=== PATIENT | male | born 1960 | race Caucasian/White ===

== ENCOUNTER 2017-05-12 18:26 | Inpatient (IN) | payer OTHER ==
[~2017-05-12] VITALS: Ht 170.2 cm; Wt 102.2 kg
[2017-05-12] MEDS ORDERED: ONDANSETRON HCL 4 MG/2 ML VIAL IVP ONE (19:15)
[2017-05-12] MEDS ORDERED: SODIUM CHLORIDE 0.9% 1,000 ML IV ONE ×2 (19:15→20:30)
[2017-05-12] MEDS ORDERED: MORPHINE SULFATE 4 MG/ML SYRINGE IVP ONE (19:15)
[2017-05-12 19:20] LABS: BASOPHILS % (AUTO) 0.8 % (0.0-2.0); EOSINOPHILS % (AUTO) 3.9 % (1.0-6.0); HEMATOCRIT 41.5 % (41-53); HEMOGLOBIN 14.3 g/dL (13.5-17.5); LYMPHOCYTES # (AUTO) 2.5 K/uL (1.0-4.8); LYMPHOCYTES % (AUTO) 28.7 % (22.0-44.0); MEAN CORPUSCULAR HEMOGLOBIN 30.6 pg (26.0-34.0); MEAN CORPUSCULAR HGB CONC 34.5 G/dL (31.0-37.0); MEAN CORPUSCULAR VOLUME 89 fL (80-100); MONOCYTES # (AUTO) 0.4 K/uL (0.1-1.0); MONOCYTES % (AUTO) 4.5 % (2.0-9.0); NEUTROPHILS # (AUTO) 5.4 K/uL (1.8-7.7); NEUTROPHILS % (AUTO) 62.1 % (40.0-70.0); PLATELET COUNT (AUTO) 267 K/uL (150-450); RED BLOOD CELL COUNT(AUTO) 4.69 MIL/uL (4.50-5.90); RED CELL DISTRIBUTION WIDTH 13.8 % (11.5-14.5); WHITE BLOOD COUNT (AUTO) 8.6 K/uL (4.5-11.0)
[2017-05-12 19:28] LABS: ANION GAP 5 mmol/L (8-16); CALCIUM, TOTAL 9.2 mg/dL (8.8-10.5); CARBON DIOXIDE 30 mmol/L (22-29); CHLORIDE 102 mmol/L (98-107); CREATININE 0.94 mg/dL (0.60-1.30); GLOMERULAR FILTR. RATE CALC > 60 mL/min (>60); POTASSIUM 3.9 mmol/L (3.5-5.1); SODIUM SERUM 137 mmol/L (136-145); UREA NITROGEN, BLOOD 22 mg/dL (7-18)
[2017-05-12 20:08] LABS: ALANINE AMINOTRANSFERASE 35 U/L (12-78); ALBUMIN 3.6 g/dL (3.4-5.0); ASPARTATE AMINOTRANSFERASE 20 U/L (15-37); BILIRUBIN,TOTAL 0.2 mg/dL (0.1-1.0); TOTAL PROTEIN, SERUM 7.4 g/dL (6.4-8.2)
[2017-05-12 20:19] LABS: APPEARANCE,URINE CLEAR (CLEAR); GLUCOSE, URINE (UA) NEGATIVE (NEGATIVE); KETONES,URINE NEGATIVE (NEGATIVE); LEUKOCYTE ESTERASE ,URINE NEGATIVE (NEGATIVE); OCCULT BLOOD,URINE NEGATIVE (NEGATIVE); PROTEIN,URINE NEGATIVE (NEGATIVE)
[2017-05-12 20:26] LABS: ADD UA MICROSCOPIC NO
[2017-05-12] MEDS ORDERED: ONDANSETRON HCL 4 MG/2 ML VIAL IVP PRN ×2 (20:30→21:45)
[2017-05-12] MEDS ORDERED: MORPHINE SULFATE 4 MG/ML SYRINGE IVP PRN (20:30)
[2017-05-12 20:55] VITALS: BP 141/71
[2017-05-12] MEDS ORDERED: MAGNESIUM HYDROXIDE SUSPENSION 30 ML UDCUP PO PRN (21:45)
[2017-05-12] MEDS ORDERED: ZOLPIDEM TARTRATE 5 MG TABLET PO PRN (21:45)
[2017-05-12] MEDS ORDERED: BISACODYL 10 MG RECTAL RECTAL SUPPOSITORY PR PRN (21:45)
[2017-05-12] MEDS ORDERED: ALBUTEROL SULFATE 2.5 MG/0.5 ML NEB SOLUTION NEB PRN (21:45)
[2017-05-12] MEDS ORDERED: IPRATROPIUM BROMIDE 0.5 MG/2.5 ML NEB SOLUTION NEB PRN (21:45)
[2017-05-12] MEDS ORDERED: ACETAMINOPHEN 325 MG TABLET PO PRN (21:45)
[2017-05-12] MEDS: DEXTROSE 5%-0.45% SODIUM CHL 1,000 ML IV SCH (23:00)
[2017-05-13] VITALS (7 sets, daily range): BP systolic 108–140; BP diastolic 71–88
[2017-05-13 06:39] LABS: BASOPHILS # (AUTO) 0.04 K/uL (0.00-0.20); BASOPHILS % (AUTO) 0.5 % (0.0-2.0); EOSINOPHILS # (AUTO) 0.35 K/uL (0.00-0.70); EOSINOPHILS % (AUTO) 4.42 % (1.0-6.0); HEMATOCRIT 40.7 % (41-53); HEMOGLOBIN 13.6 g/dL (13.5-17.5); LYMPHOCYTES % (AUTO) 25.9 % (22.0-44.0); MEAN CORPUSCULAR HGB CONC 33.4 G/dL (31.0-37.0); MEAN CORPUSCULAR VOLUME 90 fL (80-100); MONOCYTES # (AUTO) 0.5 K/uL (0.1-1.0); MONOCYTES % (AUTO) 6.5 % (2.0-9.0); NEUTROPHILS # (AUTO) 4.9 K/uL (1.8-7.7); NEUTROPHILS % (AUTO) 62.7 % (40.0-70.0); PLATELET COUNT (AUTO) 235 K/uL (150-450); RED BLOOD CELL COUNT(AUTO) 4.54 MIL/uL (4.50-5.90); RED CELL DISTRIBUTION WIDTH 13.9 % (11.5-14.5); WHITE BLOOD COUNT (AUTO) 7.8 K/uL (4.5-11.0)
[2017-05-13 06:55] LABS: ALANINE AMINOTRANSFERASE 31 U/L (12-78); ALBUMIN 3.2 g/dL (3.4-5.0); ANION GAP 8 mmol/L (8-16); ASPARTATE AMINOTRANSFERASE 18 U/L (15-37); BILIRUBIN,TOTAL 0.3 mg/dL (0.1-1.0); CALCIUM, TOTAL 8.3 mg/dL (8.8-10.5); CARBON DIOXIDE 26 mmol/L (22-29); CHLORIDE 103 mmol/L (98-107); CREATININE 0.84 mg/dL (0.60-1.30); GLOMERULAR FILTR. RATE CALC > 60 mL/min (>60); SODIUM SERUM 137 mmol/L (136-145); TOTAL PROTEIN, SERUM 6.6 g/dL (6.4-8.2); UREA NITROGEN, BLOOD 19 mg/dL (7-18)
[2017-05-13 07:34] LABS: HEMOGLOBIN A1C 6.2 % (4.5-6.2)
[2017-05-13] MEDS: DEXTROSE 5%-0.45% SODIUM CHL 1,000 ML IV SCH (09:18)
[2017-05-13] MEDS: PANTOPRAZOLE SODIUM 40 MG/VIAL IVP SCH (09:18)
[2017-05-13] MEDS: HEPARIN SODIUM,PORCINE 5,000 UNITS/ML VIAL SQ SCH ×2 (09:18→20:03)
[2017-05-13] MEDS ORDERED: RINGERS SOLUTION,LACTATED 1,000 ML IV ONE ×3 (11:00→12:00)
[2017-05-13] MEDS ORDERED: METOCLOPRAMIDE HCL 5 MG/ML 2 ML VIAL IVP ONE (12:00)
[2017-05-13] MEDS ORDERED: ROCURONIUM BROMIDE 10 MG/ML 5 ML VIAL IVP ONE (12:00)
[2017-05-13] MEDS ORDERED: NEOSTIGMINE METHYLSULFATE 1 MG/ML 10 ML VIAL IVP ONE (12:00)
[2017-05-13] MEDS ORDERED: LIDOCAINE HCL/PF 2% 5 ML VIAL INJ ONE (12:00)
[2017-05-13] MEDS ORDERED: GLYCOPYRROLATE 0.2 MG/ML VIAL IM ONE (12:00)
[2017-05-13] MEDS ORDERED: ALBUTEROL SULFATE HFA 90 MCG/PUFF 8 GM INHALER IH ONE (12:00)
[2017-05-13] MEDS ORDERED: MIDAZOLAM HCL 2 MG/2 ML VIAL IVP ONE (12:00)
[2017-05-13] MEDS ORDERED: FentaNYL CITRATE-PF 100 MCG/2 ML VIAL IVP ONE (12:00)
[2017-05-13] MEDS ORDERED: DEXAMETHASONE SOD PHOS 4 MG/ML VIAL IVP ONE (12:00)
[2017-05-13] MEDS ORDERED: PROPOFOL 1% 20 ML VIAL IVP ONE (12:00)
[2017-05-13] MEDS ORDERED: ONDANSETRON HCL 4 MG/2 ML VIAL IVP ONE (12:00)
[2017-05-13] MEDS ORDERED: BUPIVACAINE 0.25%/EPI 1:200,000/PF 10 ML VIAL ONE (12:28)
[2017-05-13] MEDS ORDERED: BACITRACIN 50,000 UNITS/VIAL ONE (12:28)
[2017-05-13] MEDS ORDERED: ALBUTEROL SULFATE 2.5 MG/0.5 ML NEB SOLUTION NEB ONE (12:30)
[2017-05-13] MEDS ORDERED: HYDROmorphone 2 MG/ML SYRINGE ONE ×2 (14:47→15:16)
[2017-05-13] MEDS ORDERED: FentaNYL CITRATE-PF 100 MCG/2 ML VIAL IVP PRN (15:00)
[2017-05-13] MEDS ORDERED: MEPERIDINE-PF 25 MG/ML SYRINGE IVP PRN (15:00)
[2017-05-13] MEDS: HYDROmorphone 2 MG/ML SYRINGE IVP PRN ×2 (15:17→15:30)
[2017-05-13] MEDS: NICOTINE 21 MG/24 HOUR PATCH TD SCH (20:03)
[2017-05-13] MEDS: OxyCODONE HCL/ACETAMINOPHEN 5-325 MG TABLET PO PRN (20:05)
[2017-05-14] MEDS: DEXTROSE 5%-0.45% SODIUM CHL 1,000 ML IV SCH (04:10)
[2017-05-14 04:48] VITALS: BP 112/64
[2017-05-14] MEDS: OxyCODONE HCL/ACETAMINOPHEN 5-325 MG TABLET PO PRN ×3 (04:56→23:04)
[2017-05-14] MEDS: OXYGEN THERAPY IH SCH ×3 (04:57→19:52)
[2017-05-14 07:10] VITALS: BP 116/73
[2017-05-14] MEDS: PANTOPRAZOLE SODIUM 40 MG/VIAL IVP SCH (09:01)
[2017-05-14] MEDS: HEPARIN SODIUM,PORCINE 5,000 UNITS/ML VIAL SQ SCH ×2 (09:09→19:52)
[2017-05-14] MEDS: NICOTINE 21 MG/24 HOUR PATCH TD SCH (09:13)
[2017-05-14 11:05] VITALS: BP 113/71
[2017-05-14 15:29] VITALS: BP 112/70
[2017-05-14] MEDS: MORPHINE SULFATE 4 MG/ML SYRINGE IVP PRN (15:32)
[2017-05-14 19:24] VITALS: BP 120/71
[2017-05-14] MEDS: GuaiFENesin [SUGAR-FREE] 200 MG/10 ML SOLUTION UDCUP PO PRN (23:04)
[2017-05-14 23:09] VITALS: BP 124/68
[2017-05-15 04:23] VITALS: BP 110/72
[2017-05-15] MEDS: GuaiFENesin [SUGAR-FREE] 200 MG/10 ML SOLUTION UDCUP PO PRN ×3 (05:30→17:22)
[2017-05-15] MEDS: OxyCODONE HCL/ACETAMINOPHEN 5-325 MG TABLET PO PRN ×2 (05:31→17:22)
[2017-05-15 07:13] VITALS: BP 107/69
[2017-05-15] MEDS: OXYGEN THERAPY IH SCH (08:00)
[2017-05-15] MEDS: HEPARIN SODIUM,PORCINE 5,000 UNITS/ML VIAL SQ SCH (08:09)
[2017-05-15] MEDS: PANTOPRAZOLE SODIUM 40 MG/VIAL IVP SCH (08:09)
[2017-05-15] MEDS: NICOTINE 21 MG/24 HOUR PATCH TD SCH (08:10)
[2017-05-15] MEDS: MORPHINE SULFATE 4 MG/ML SYRINGE IVP PRN (11:17)
[2017-05-15 11:37] VITALS: BP 108/67
[2017-05-15 15:26] VITALS: BP 120/69
== END 2017-05-15 18:20 | DRG 352 ==
LOC: EMS 18:28 → 6N 20:28
PROVIDERS: ADMIT Internal Medicine; ATTEND Internal Medicine
PROC: 0JBC0ZZ Excision of Pelvic Region Subcutaneous Tissue and Fascia, Open Approach (ICD-10-PCS; 2017-05-13)
PROC: 0YU50JZ Supplement Right Inguinal Region with Synthetic Substitute, Open Approach (ICD-10-PCS; principal; 2017-05-13 12:00)
DX: K40.31 Unilateral inguinal hernia, with obstruction, without gangrene, recurrent (principal); D17.6 Benign lipomatous neoplasm of spermatic cord; E66.9 Obesity, unspecified; G40.909 Epilepsy, unspecified, not intractable, without status epilepticus; J44.9 Chronic obstructive pulmonary disease, unspecified; M51.36 Other intervertebral disc degeneration, lumbar region; M19.90 Unspecified osteoarthritis, unspecified site; F17.210 Nicotine dependence, cigarettes, uncomplicated; Z68.35 Body mass index [BMI] 35.0-35.9, adult; Z98.1 Arthrodesis status; Z71.6 Tobacco abuse counseling
CPT/HCPCS: 74176; 83036; 83735; 84100; 87081; 88302; 88304; 96361; 96374; 96375; 97162; 99285; C9113; J1100; J1170; J1644; J2250; J2270; J2405; J2704; J2765; J3010; J3490; J3535; J7030; J7120